=== PATIENT | male | born 1975 | race Caucasian/White ===

== ENCOUNTER 2017-02-27 15:15 | Emergency (ER) | payer BC ==
[~2017-02-27] VITALS: Ht 182.9 cm; Wt 95.0 kg
[~2017-02-27 15:15] MED LIST: ALT25 PO; DILT1TAB58 PO; LEVO75TA PO; NTRGSL/4 UT
[2017-02-27 15:22] VITALS: TEMP 36.3; Ht 182.9 cm; Wt 95.0 kg
[2017-02-27] MEDS ORDERED: KETOROLAC TROMETHAMINE 30 MG/ML VIAL IV STA (15:31)
--- NOTE | 2017-02-27 15:38 | EMERGENCY ROOM VISIT NOTE ---
History Report prepared by Deisi: Akua Fox Under the Supervision of: Dr. Burton Jaffe M.D. First contact with patient: 15:24 Chief Complaint: FLANK PAIN Stated Complaint: SERIOUS KIDNEY PAIN Nursing Triage Summary: left flank pain extremempain started 20 min ago History of Present Illness The patient is a 41 year old male who presents to the Emergency Room with complaints of persistent left flank pain that began thirty minutes ago. He currently rates his discomfort as a 9/10 in severity. The patient states that his pain radiates into his left abdomen. He denies any pain with urination or hematuria. The patient reports normal bowel movements. He denies any current nausea. The patient denies any testicular pain. He denies any history of kidney stones. The patient reports a history of a heart issue. He states that he takes medication for hypertension and a calcium channel sheldon. Source of History: patient Onset: thirty minutes ago Position: other (left flank) Symptom Intensity: 9/10 Timing: other (persistent) Associated Symptoms: + abdominal pain (left abdomen), No nausea, No urinary symptoms Review of Systems All systems have been listed, reviewed, and are negative other than those previously mentioned. Please see Additional Medical History Sheet. Past Medical & Surgical Medical Problems: (1) Asthma (2) Heart disease (3) Hypothyroidism (4) ND (myocardial infarction) Family History Diabetes mellitus Social History Smoking Status: Never Smoker Alcohol Use: occasionally Drug Use: none Marital Status: Housing Status: lives with family Occupation Status: employed Current/Historical Medications Scheduled Diltiazem Hcl Coated Beads (Cardizem La), 120 MG PO DAILY Levothyroxine Sodium (Levothyroxine Sodium), 125 MCG PO DAILY Nitroglycerin (Nitrostat), 0.4 MG UT PRN Ondasetron Odt (Zofran Odt), 4 MG SL Q4 Ramipril (Altace), 2.5 MG PO Q2D Tamsulosin Hcl (Flomax), 1 CAP PO DAILY Scheduled PRN Ibuprofen Tab (Motrin), 600 MG PO Q6H PRN for Pain Oxycodone/Acetaminophen 5MG/325MG (Percocet 5MG/325MG), 1-2 TABLETS PO Q4H PRN for Pain Allergies Coded Allergies: No Known Allergies (Unverified , 02/27/17) Physical Exam Vital Signs Date Time Temp Pulse Resp B/P (MAP) Pulse Ox O2 Delivery O2 Flow Rate FiO2 02/27/17 18:20 68 20 122/74 98 02/27/17 15:22 36.3 67 22 141/71 100 Room Air Physical Exam GENERAL: Patient awake, alert, oriented x 3. Patient follows commands. Patient does not appear toxic. Patient is adequately hydrated and well- nourished. SKIN: No erythema, pallor, cyanosis or rash HEENT: Normal head, pupils equal, reactive to light and accommodation. Neck: Without adenopathy, no neck vein distention. LUNGS: Clear to auscultation. No wheezes, no rales, no rhonchi. HEART: No murmurs. No gallops. No rubs ABDOMEN: Vague tenderness in left CVA and left mid abdomen. No masses, no rebound, no hepatomegaly or splenomegaly. : Genitalia normal, circumcised male. EXTREMITIES: No signs of trauma or infection NEUROLOGIC: Cranial nerves II-XII within normal limits. No gross motor sensory function deficits. Medical Decision & Procedures ER Provider Diagnostic Interpretation: CT results are interpretations by the radiologist and per my review. CT OF THE ABDOMEN AND PELVIS WITHOUT CONTRAST, STONE PROTOCOL CLINICAL HISTORY: Left flank pain. COMPARISON STUDY: None. TECHNIQUE: Helical axial images of the abdomen and pelvis were obtained without IV or oral contrast according to renal stone protocol. FINDINGS: A 3 mm distal left ureteral calculus results in mild left hydroureteronephrosis. No additional urinary calculi are identified. A 2.3 cm water attenuation lesion within the lower pole of the left kidney is suboptimally assessed on this unenhanced exam but likely reflects a cyst. A 1.2 cm water attenuation right hepatic lobe lesion is suboptimally assessed on this exam but likely reflects a cyst. There are faint calcifications within the right hepatic lobe. There is no evidence for a bowel obstruction. The appendix is normal. No lymphadenopathy is present. Skeletal structures are unremarkable. IMPRESSION: 3 mm distal left ureteral calculus which results in mild left hydroureteronephrosis. Electronically signed by: Jamarcus Hernandez M.D. 02/27/2017 4:30 PM Dictated Date/Time: 02/27/2017 4:24 PM Laboratory Results 02/27/17 15:43 Red Blood Count 5.12, Mean Corpuscular Volume 89.8, Mean Corpuscular Hemoglobin 30.9, Mean Corpuscular Hemoglobin Concent 34.3, Mean Platelet Volume 11.0 02/27/17 15:43 Test 02/27/17 15:43 02/27/17 15:50 White Blood Count 6.91 K/uL (4.8-10.8) Red Blood Count 5.12 M/uL (4.7-6.1) Hemoglobin 15.8 g/dL (14.0-18.0) Hematocrit 46.0 % (42-52) Mean Corpuscular Volume 89.8 fL (80-100) Mean Corpuscular Hemoglobin 30.9 pg (25-34) Mean Corpuscular Hemoglobin Concent 34.3 g/dl (32-36) Platelet Count 178 K/uL (130-400) Mean Platelet Volume 11.0 fL (7.4-10.4) RDW Standard Deviation 41.9 fL (36.4-46.3) RDW Coefficient of Variation 12.8 % (11.5-14.5) Neutrophils % (Manual) 32.9 % Lymphocytes % (Manual) 34.6 % Variant Lymphocytes % (manual) 19.5 % Monocytes % (Manual) 8.2 % Eosinophils % (Manual) 3.9 % Basophils % (Manual) 0.9 % (0-2) Neutrophils # (Manual) 2.27 K/uL (1.4-6.5) Total Absolute Neutrophils 2.27 K/uL (1.4-6.5) Lymphocytes # (Manual) 2.39 K/uL (1.2-3.4) Absolute Variant Lymphocytes 1.35 K/uL Total Absolute Lymphocytes 3.74 K/uL (1.2-3.4) Monocytes # (Manual) 0.57 K/uL (0.11-0.59) Eosinophils # (Manual) 0.27 K/uL (0-0.5) Basophils # (Manual) 0.06 K/uL (0-0.2) Smudge Cells PRESENT Microcytosis PRESENT Anion Gap 8.0 mmol/L (3-11) Est Creatinine Clear Calc Drug Dose 117.5 ml/min Estimated GFR () 108.6 Estimated GFR (Non- 93.7 BUN/Creatinine Ratio 9.4 (10-20) Calcium Level 9.2 mg/dl (8.5-10.1) Urine Color YELLOW Urine Appearance CLEAR (CLEAR) Urine pH 6.5 (4.5-7.5) Urine Specific [place] 1.026 (1.000-1.030) Urine Protein NEG (NEG) Urine Glucose (UA) NEG (NEG) Urine Ketones TRACE (NEG) Urine Occult Blood NEG (NEG) Urine Nitrite NEG (NEG) Urine Bilirubin NEG (NEG) Urine Urobilinogen NEG (NEG) Urine Leukocyte Esterase NEG (NEG) Laboratory results as stated above per my review. Medications Administered Medications (Trade) Dose Ordered Sig/Kimberley Route Start Time Stop Time Status Last Admin Dose Admin Ketorolac Tromethamine (Toradol Inj) 30 mg NOW STAT IV 02/27/17 15:31 02/27/17 15:34 DC 02/27/17 15:43 30 MG Ondansetron HCl (Zofran Inj) 4 mg Q1HWA PRN IV 02/27/17 15:45 02/27/17 18:46 DC 02/27/17 17:42 4 MG Tamsulosin HCl (Flomax Cap) 0.4 mg NOW ONCE PO 02/27/17 17:15 02/27/17 17:16 DC 02/27/17 17:16 0.4 MG Hydromorphone HCl (Dilaudid Inj) 1 mg Q1HWA PRN IV 02/27/17 17:45 02/27/17 18:46 DC 02/27/17 17:43 1 MG Oxycodone/ Acetaminophen (Percocet 5/ 325MG Home Pack) 1 homepack UD ONCE PO 02/27/17 17:45 02/27/17 17:46 DC 02/27/17 17:43 1 HOMEPACK ED Course 1529: Past medical records reviewed. The patient was evaluated in room C2B. A complete history and physical examination was performed. 1531: Ordered Toradol Inj 30 mg IV. 1545: Ordered Zofran Inj 4 mg IV. 1622: I reevaluated the patient and his pain is less than it was. 165: I reevaluated the patient and he is resting comfortably. I discussed the exam findings with him thus far and I discussed the treatment plan with him and his family. They verbalized complete understanding and agreement. The patient is ready to go home. 1715: Ordered Flomax Cap 0.4 mg PO. 1734: I reevaluated the patient and he is now in severe pain. He is requesting more pain medication at this time. 174: Ordered Dilaudid Inj 1 mg IV, Oxycodone/Acetaminophen 1 homepack PO. Medical Decision Nurses notes reviewed. Medical history sheet reviewed. Differential diagnosis includes but is not limited to: kidney stone, urinary tract infection, pyelonephritis, musculoskeletal pain. Medication Reconciliation: I attest that I have personally reviewed the patient' s current medication list. Blood Pressure Screening: Patient was found to have a slightly elevated blood pressure due to circumstances. I do not believe that the patient requires hypertension monitoring. Multiple labs, urinalysis and imaging were obtained. Please see above. 41-year-old male with left flank pain was found to have a 3 mm left ureteral calculus. He has mild hydronephrosis. The patient has no hematuria but does have trace ketones. Blood for potassium hemolyzed but I do not believe it requires a redraw. The patient did get relief with Toradol but later needed a narcotic for a recurrence of the pain. He will be sent home with a prescription for ibuprofen, Zofran and Flomax and Percocet. . Impression Primary Impression: Left ureteral calculus Scribe Attestation The scribe's documentation has been prepared under my direction and personally reviewed by me in its entirety. I confirm that the note above accurately reflects all work, treatment, procedures, and medical decision making performed by me. Departure Information Dispostion Home / Self-Care (ER) Prescriptions Oxycodone/Acetaminophen 5MG/325MG (PERCOCET 5MG/325MG) Tab 1-2 TABLETS PO Q4H Y for Pain, #20 TAB Prov: Burton Jaffe M.D. 02/27/17 Ondasetron Odt (ZOFRAN ODT) 4 Mg Tab 4 MG SL Q4 for Nausea, #6 TAB Prov: Burton Jaffe M.D. 02/27/17 Tamsulosin Hcl (FLOMAX) 0.4 Mg Cap 1 CAP PO DAILY for 30 Days, #10 CAP 5 Refills Prov: Burton Jaffe M.D. 02/27/17 Ibuprofen Tab (MOTRIN) 600 Mg Tab 600 MG PO Q6H Y for Pain, #20 TAB Prov: Burton Jaffe M.D. 02/27/17 Referrals Keith Lucio M.D. (PCP) Forms HOME CARE DOCUMENTATION FORM, IMPORTANT VISIT INFORMATION Patient Instructions ED Stone Renal W Col[facility], My [facility] Additional Instructions 600 mg ibuprofen every 6 hours until pain has resolved. 1 Flomax daily. 1 Zofran every 4 hours as needed for nausea. Drink extra fluids. Strain your urine. Return here if your pain is not controlled with the above medications.
[2017-02-27] MEDS: ONDANSETRON INJ 2 MG/ML 2 ML VIAL IV PRN ×2 (15:44→17:42)
[2017-02-27 15:58] LABS: MEAN CELL VOLUME 89.8 fL (80-100); MEAN CORPUSCULAR HEMOGLOBIN 30.9 pg (25-34); MEAN CORPUSCULAR HGB CONC 34.3 g/dl (32-36); PLATELET COUNT 178 K/uL (130-400); RED BLOOD COUNT 5.12 M/uL (4.7-6.1); WHITE BLOOD COUNT 6.91 K/uL (4.8-10.8)
[2017-02-27 16:04] LABS: MANUAL MICROSCOPIC REQUIRED? NO; REVIEW REQ? NO; URINE APPEARANCE CLEAR (CLEAR); URINE BILIRUBIN NEG (NEG); URINE COLOR YELLOW; URINE NITRITE NEG (NEG); URINE PH 6.5 (4.5-7.5); URINE SPECIFIC GRAVITY 1.026 (1.000-1.030); UROBILINOGEN NEG (NEG); ZZUR CULT IF INDIC CLEAN CATCH NO
[2017-02-27 16:20] LABS: BLOOD UREA NITROGEN 9 mg/dl (7-18); BUN/CREATININE RATIO 9.4 (10-20); CALCIUM 9.2 mg/dl (8.5-10.1); CARBON DIOXIDE 25 mmol/L (21-32); CHLORIDE 107 mmol/L (98-107); GLUCOSE 114 mg/dl (70-99); SODIUM 140 mmol/L (136-145)
--- NOTE | 2017-02-27 16:31 | DIAGNOSTIC IMAGING REPORT ---
CT OF THE ABDOMEN AND PELVIS WITHOUT CONTRAST, STONE PROTOCOL CLINICAL HISTORY: Left flank pain. COMPARISON STUDY: None. TECHNIQUE: Helical axial images of the abdomen and pelvis were obtained without IV or oral contrast according to renal stone protocol. FINDINGS: A 3 mm distal left ureteral calculus results in mild left hydroureteronephrosis. No additional urinary calculi are identified. A 2.3 cm water attenuation lesion within the lower pole of the left kidney is suboptimally assessed on this unenhanced exam but likely reflects a cyst. A 1.2 cm water attenuation right hepatic lobe lesion is suboptimally assessed on this exam but likely reflects a cyst. There are faint calcifications within the right hepatic lobe. There is no evidence for a bowel obstruction. The appendix is normal. No lymphadenopathy is present. Skeletal structures are unremarkable. IMPRESSION: 3 mm distal left ureteral calculus which results in mild left hydroureteronephrosis. Electronically signed by: Jamarcus Hernandez M.D. 02/27/2017 4:30 PM Dictated Date/Time: 02/27/2017 4:24 PM
[2017-02-27] MEDS ORDERED: LEVO125T4 PO (16:35)
[2017-02-27] MEDS ORDERED: IBUP-1427 PO (17:02)
[2017-02-27] MEDS ORDERED: ONDA4TAB10 SL (17:02)
[2017-02-27] MEDS ORDERED: TAMS0.4C38 PO (17:02)
[2017-02-27] MEDS ORDERED: TAMSULOSIN HCL 0.4 MG CAP PO ONE (17:15)
[2017-02-27] MEDS ORDERED: OXYC-57 PO (17:36)
[2017-02-27] MEDS ORDERED: HYDROmorphone INJ 1 MG/ML SYR IV PRN (17:45)
[2017-02-27] MEDS ORDERED: PERCOCET HOME PACK PO ONE (17:45)
[2017-02-27 18:20] VITALS: BP 122/74; PULSE 68; O2SAT 98
[2017-02-27 20:41] LABS: BASO ABS # 0.06 K/uL (0-0.2); BASOPHIL % 0.9 % (0-2); COMPLETE YES; EOSINOPHIL % 3.9 %; LYMPH ABS # 2.39 K/uL (1.2-3.4); LYMPHOCYTE % 34.6 %; MICROCYTOSIS PRESENT; NEUTROPHILS % 32.9 %; SMUDGE CELLS PRESENT; VARIANT LYM ABS # 1.35 K/uL; VARIANT LYMPHOCYTE % 19.5 %
== END 2017-02-27 18:20 | disposition home or self-care (01) ==
LOC: C.EDB 15:19 → C.EDC 18:20
DX: N20.1 Calculus of ureter (principal); I10 Essential (primary) hypertension; J45.909 Unspecified asthma, uncomplicated; E03.9 Hypothyroidism, unspecified; I25.2 Old myocardial infarction; Z79.899 Other long term (current) drug therapy